=== PATIENT | female | born 1980 | race African-American/Black ===

== ENCOUNTER 2021-09-19 06:12 | Inpatient (IN) | payer OTHER ==
[2021-09-18 10:09] VITALS: BMI 29.7
[2021-09-19] MEDS ORDERED: BUPIVACAINE HCL/PF 0.25% (2.5MG/ML) 10 ML VIAL ONE (12:39)
[2021-09-19] MEDS ORDERED: BUPIVACAINE LIPOSOME/PF (EXPAREL) 266 MG/20 ML VIAL ONE (12:39)
[2021-09-19] MEDS ORDERED: CEFAZOLIN 2 GM in DEXTROSE 5%-WATER - 100 ML IVPB ONE (13:00)
[2021-09-19] MEDS ORDERED: DEXMEDETOMIDINE HCL 200 MCG/2 ML IVPB ONE (13:03)
[2021-09-19] MEDS ORDERED: ACETAMINOPHEN INJECTION 100 ML IVPB ONE (13:03)
[2021-09-19] MEDS ORDERED: MIDAZOLAM HCL 2 MG/2 ML SINGLE DOSE VIAL ONE ×2 (13:04)
[2021-09-19] MEDS ORDERED: LIDOCAINE HCL/PF 2% SDV 5ML VIAL ONE (13:05)
[2021-09-19] MEDS ORDERED: ceFAZolin SODIUM 1 GM VIAL IVPB ONE (14:15)
[2021-09-19] MEDS ORDERED: TRANEXAMIC ACID 1000 MG/10 ML VIAL ONE ×2 (14:16→14:37)
[2021-09-19] MEDS ORDERED: ROCURONIUM BROMIDE 50 MG/5 ML SYRINGE ONE (14:20)
[2021-09-19] MEDS ORDERED: NEOSTIGMINE METHYLSULFATE 0.5 MG/ML - 10 ML MDV ONE (14:33)
[2021-09-19] MEDS ORDERED: ALBUMIN HUMAN 5% 250 ML IV SOLUTION IV ONE ×3 (14:35→15:25)
[2021-09-19] MEDS ORDERED: BISACODYL 5 MG TABLET.DR (FP) PO PRN (16:07)
[2021-09-19] MEDS ORDERED: IBUPROFEN 800 MG/8 ML IJ IVPB PRN (16:07)
[2021-09-19] MEDS ORDERED: ACETAMINOPHEN 325 MG TABLET (FP) PO PRN (16:07)
[2021-09-19] MEDS ORDERED: ONDANSETRON 4 MG/2 ML VIAL IVPUSH PRN ×2 (16:07→17:12)
[2021-09-19] MEDS ORDERED: DOCUSATE SODIUM 100 MG CAPSULE (FP) PO PRN (16:07)
[2021-09-19] MEDS ORDERED: PROMETHAZINE HCL 25 MG/1 ML VIAL IVPUSH PRN (17:12)
[2021-09-19] MEDS: LACTATED RINGERS SOLUTION 1,000 ML IV SCH (18:06)
[2021-09-19] MEDS ORDERED: DEXTROSE 5%-WATER - 50 ML IVPB ONE (20:59)
[2021-09-19] MEDS ORDERED: ceFAZolin SODIUM 1 GM VIAL ONE (21:00)
[2021-09-19] MEDS: CEFAZOLIN 1 GM in DEXTROSE 5%-WATER - 1 GM/50 ML IVPB IVPB SCH (21:12)
[2021-09-20] MEDS: LACTATED RINGERS SOLUTION 1,000 ML IV SCH ×2 (02:00→20:18)
[2021-09-20] MEDS ORDERED: DEXTROSE 5%-WATER - 50 ML IVPB ONE (05:08)
[2021-09-20] MEDS ORDERED: ceFAZolin SODIUM 1 GM VIAL ONE (05:08)
[2021-09-20] MEDS: CEFAZOLIN 1 GM in DEXTROSE 5%-WATER - 1 GM/50 ML IVPB IVPB SCH (05:20)
[2021-09-20] MEDS: oxyCODONE HCL 5 MG TABLET PO PRN ×3 (07:09→17:01)
[2021-09-20] MEDS: SIMETHICONE 80 MG TAB.CHEW (FP) PO PRN ×2 (07:09→17:01)
[2021-09-20 08:10] LABS: HEMOGLOBIN 7.8 GM/dL (10.7-15.3); MCH 25.4 pg (25.7-33.7); MCHC 32.6 g/dl (32.0-36.0); MEAN CELL VOLUME 77.7 fl (80-96); MEAN PLT VOLUME 9.9 fl (7.5-11.1); PLATELET COUNT 176 10^3/uL (134-434); RBC 3.09 M/mm3 (3.60-5.2); RDW 15.8 % (11.6-15.6); WHITE BLOOD COUNT 5.5 K/mm3 (4.0-10.0)
[2021-09-20 08:22] LABS: CALCIUM 8.1 mg/dL (8.5-10.1)
[2021-09-20 08:23] LABS: BLOOD UREA NITROGEN 7.5 mg/dL (7-18)
[2021-09-20 08:26] LABS: CREATININE 0.9 mg/dL (0.55-1.3)
[2021-09-20] MEDS: HYDROCHLOROTHIAZIDE 25 MG TABLET (FP) PO SCH (09:27)
[2021-09-20] MEDS: ENOXAPARIN NA (PORCINE) 40 MG/0.4 ML DISP.SYRIN SQ SCH (09:27)
[2021-09-20] MEDS: METHIMAZOLE 10 MG TABLET PO SCH (09:27)
[2021-09-20] MEDS ORDERED: IBUPROFEN 200 MG TABLET PO PRN (15:44)
[2021-09-20] MEDS ORDERED: IBUPROFEN 600 MG TABLET (FP) PO PRN (20:31)
[2021-09-21] MEDS: SIMETHICONE 80 MG TAB.CHEW (FP) PO PRN ×2 (02:23→08:22)
[2021-09-21] MEDS: oxyCODONE HCL 5 MG TABLET PO PRN ×2 (02:24→08:22)
[2021-09-21] MEDS: METHIMAZOLE 10 MG TABLET PO SCH (10:15)
[2021-09-21] MEDS: HYDROCHLOROTHIAZIDE 25 MG TABLET (FP) PO SCH (10:15)
[2021-09-21] MEDS: ENOXAPARIN NA (PORCINE) 40 MG/0.4 ML DISP.SYRIN SQ SCH (10:15)
[2021-09-21 10:21] VITALS: BP 129/81; PULSE 85; TEMP 98.2
== END 2021-09-21 11:55 | disposition home or self-care (01) | DRG 519 ==
LOC: J2C 06:12 → J3W 18:23
PROVIDERS: ADMIT Obstetrics & Gynecology; ATTEND Obstetrics & Gynecology
PROC: 0UT70ZZ Resection of Bilateral Fallopian Tubes, Open Approach (ICD-10-PCS; 2021-09-19)
PROC: 0UT10ZZ Resection of Left Ovary, Open Approach (ICD-10-PCS; 2021-09-19)
PROC: 0UT90ZZ Resection of Uterus, Open Approach (ICD-10-PCS; principal; 2021-09-19 13:00)
DX: D25.9 Leiomyoma of uterus, unspecified (principal)
CPT/HCPCS: 36415; 80048; 80053; 81025; 84702; 84703; 85027; 85610; 85730; 86780; 86850; 86900; 86901; 88307-TC; 94010; 94760; C9803; U0003; U0005